=== PATIENT | female | born 1940 | race Caucasian/White ===

== ENCOUNTER 2016-10-06 20:25 | Inpatient (IN) | payer OTHER, MEDICARE ==
[~2016-10-06] VITALS: Ht 162.6 cm; Wt 53.5 kg
[~2016-10-06 20:25] MED LIST: AMLODIPINE BESYL5 MG PO; ASPIR-LOW81 MG PO; Aspirin Chewable PO; CARVEDILOL6.25 MG PO; CIPROFLOXACIN250 MG PO; COREG6.25 M1 PO; Cozaar PO; DAILY VITE1 EAC1 PO; LEVOFLOXACIN750 MG PO; LEVOTHYROXINE75 MCG PO; LIPITOR10 MG PO; LOSARTAN POTAS100 MG PO; Levothroid,Synthroid PO; NORVASC5 MG PO; PANTOPRAZOLE SO40 MG PO; PLAVIX75 MG PO; POTASSIUM CHLO20 ME1 PO; PREDNISONE2.5 MG PO; THERAGRAN1 TABLET PO; TYLENOL REGULA325 MG PO; ULTRAM50 MG PO; predniSONE PO
[2016-10-06 20:53] LABS: HEMATOCRIT 42.1 % (36.0-46.0); MCH 30.5 PG (29.0-34.0); MCHC 34.4 G/DL (30.0-36.0); MCV 88.4 FL (83-99); PLATELET COUNT 121 K/uL (156-360); RBC DIS.WIDTH-SD 41.6 % (39-53); RED BLOOD COUNT 4.76 M/uL (3.80-5.20)
[2016-10-06 21:02] LABS: CHLORIDE 108 mEq/L (99-109); POTASSIUM 3.7 mEq/L (3.7-5.4); SODIUM 137 mEq/L (136-147)
[2016-10-06 21:03] LABS: GLUCOSE 80 mg/dL (70-99)
[2016-10-06 21:05] LABS: ANION GAP 16 MEQ/L (2-14)
[2016-10-06 21:07] LABS: GFR ESTIMATE (CALCULATED) 26 mL/min/
[2016-10-06 21:08] LABS: UREA NITROGEN (BUN) 27 mg/dL (9-23)
[2016-10-06 21:49] LABS: ALKALINE PHOSPHATASE 61 IU/L (3-129)
[2016-10-06 21:52] LABS: DIRECT BILIRUBIN 0.3 mg/dL (0.0-0.3)
[2016-10-06 21:53] LABS: LIPASE 40 U/L (1.0-51.0)
[2016-10-06 22:21] LABS: TROP-I INTERPRETATION NEGATIVE; TROPONIN-I 0.03 ng/mL (0.0-0.30)
[2016-10-06] MEDS ORDERED: MUCINEX D ER T1 EACH PO (23:10)
[2016-10-07 00:49] VITALS: BP 104/51
[2016-10-07 07:24] LABS: HEMATOCRIT 36.3 % (36.0-46.0); MCH 30.2 PG (29.0-34.0); MCHC 33.3 G/DL (30.0-36.0); MCV 90.5 FL (83-99); MEAN PLAT.VOLUME 9.7 uM^3 (9.5-12.4); PLATELET COUNT 114 K/uL (156-360); RBC DIS.WIDTH-SD 42.8 % (39-53); RED BLOOD COUNT 4.01 M/uL (3.80-5.20); WHITE BLOOD COUNT 3.7 K/uL (4.1-10.2)
[2016-10-07 07:30] LABS: ANION GAP 8 MEQ/L (2-14); CHLORIDE 109 MEQ/L (99-109); GFR ESTIMATE (CALCULATED) 31 mL/min/; GLUCOSE 64 mg/dL (70-99); POTASSIUM 3.7 MEQ/L (3.7-5.4); SAMPLE HEMOLYSIS CHECK 0; SAMPLE ICTERIC CHECK 0; SAMPLE LIPEMIA CHECK 0; SODIUM 139 MEQ/L (136-147); UREA NITROGEN (BUN) 23 mg/dL (9-23)
[2016-10-07 08:39] VITALS: BP 116/56
[2016-10-07 12:10] LABS: INFLUENZA A VIRAL ANTIGEN POSITIVE; INFLUENZA B VIRAL ANTIGEN NEGATIVE
[2016-10-07 12:25] LABS: C DIFF TOXIN NEGATIVE (NEGATIVE); PROBE CHECK PASS; SPECIMEN PROCESSING CONTROL PASS
[2016-10-07 16:07] VITALS: BP 92/50
[2016-10-07 18:00] VITALS: BP 104/54
[2016-10-08 01:28] VITALS: BP 102/50
[2016-10-08 07:00] LABS: ANION GAP 8 MEQ/L (2-14); CHLORIDE 114 MEQ/L (99-109); GFR ESTIMATE (CALCULATED) > 59 mL/min/; GLUCOSE 86 mg/dL (70-99); POTASSIUM 4.4 MEQ/L (3.7-5.4); SAMPLE HEMOLYSIS CHECK 0; SAMPLE ICTERIC CHECK 0; SAMPLE LIPEMIA CHECK 0; SODIUM 140 MEQ/L (136-147); UREA NITROGEN (BUN) 11 mg/dL (9-23)
[2016-10-08 07:10] LABS: EOSINOPHIL (%) 0.5 % (0-5); HEMATOCRIT 35.1 % (36.0-46.0); IMMATURE GRANULOCYTE (%) 0.9 % (0.0-0.7); LYMPHOCYTE COUNT 0.7 K/uL (1.0-2.8); MCH 30.3 PG (29.0-34.0); MCHC 34.5 G/DL (30.0-36.0); MEAN PLAT.VOLUME 9.7 uM^3 (9.5-12.4); MONOCYTE (%) 9.7 % (3-12); MONOCYTE COUNT 0.2 K/uL (0-0.8); NEUTROPHIL (%) 54.7 % (45-76); NEUTROPHIL COUNT 1.2 K/uL (1.8-6.4); NRBC (%) 0.9 /100 WBC (0-0); PLATELET COUNT 108 K/uL (156-360); RBC DIS.WIDTH-CV 12.6 % (11.8-14.6); RBC DIS.WIDTH-SD 40.6 % (39-53); RED BLOOD COUNT 3.99 M/uL (3.80-5.20)
[2016-10-08 07:13] LABS: WHITE BLOOD COUNT 2.2 K/uL (4.1-10.2)
[2016-10-08 08:43] VITALS: BP 125/69
[2016-10-08 12:38] VITALS: BP 103/60
[2016-10-08 16:17] VITALS: BP 100/63
[2016-10-08 20:00] VITALS: BP 126/66
[2016-10-08 23:44] VITALS: BP 114/67
[2016-10-09 08:51] VITALS: BP 120/68
[2016-10-09 11:55] LABS: EOSINOPHIL (%) 3.7 % (0-5); EOSINOPHIL COUNT 0.2 K/uL (0-0.3); HEMATOCRIT 36.1 % (36.0-46.0); IMMATURE GRANULOCYTE (%) 0.2 % (0.0-0.7); LYMPHOCYTE COUNT 1.2 K/uL (1.0-2.8); MCH 30.3 PG (29.0-34.0); MCHC 34.1 G/DL (30.0-36.0); MCV 88.9 FL (83-99); MONOCYTE (%) 5.2 % (3-12); MONOCYTE COUNT 0.2 K/uL (0-0.8); NEUTROPHIL COUNT 2.4 K/uL (1.8-6.4); PLATELET COUNT 116 K/uL (156-360); RBC DIS.WIDTH-CV 13.1 % (11.8-14.6); RBC DIS.WIDTH-SD 42.6 % (39-53); RED BLOOD COUNT 4.06 M/uL (3.80-5.20); WHITE BLOOD COUNT 4.1 K/uL (4.1-10.2)
[2016-10-09 16:54] VITALS: BP 118/64
[2016-10-09 23:54] VITALS: BP 131/69
[2016-10-10 07:31] LABS: EOSINOPHIL (%) 0 % (0-5); HEMATOCRIT 32.3 % (36.0-46.0); IMMATURE GRANULOCYTE (%) 0.5 % (0.0-0.7); LYMPHOCYTE COUNT 1.1 K/uL (1.0-2.8); MCH 30.1 PG (29.0-34.0); MCHC 34.1 G/DL (30.0-36.0); MCV 88.3 FL (83-99); MEAN PLAT.VOLUME 10.8 uM^3 (9.5-12.4); MONOCYTE (%) 7.1 % (3-12); MONOCYTE COUNT 0.3 K/uL (0-0.8); NEUTROPHIL (%) 63.3 % (45-76); NEUTROPHIL COUNT 2.4 K/uL (1.8-6.4); PLATELET COUNT 90 K/uL (156-360); RBC DIS.WIDTH-CV 13.2 % (11.8-14.6); RBC DIS.WIDTH-SD 42.7 % (39-53); RED BLOOD COUNT 3.66 M/uL (3.80-5.20); WHITE BLOOD COUNT 3.8 K/uL (4.1-10.2)
[2016-10-10 07:51] LABS: ANION GAP 8 MEQ/L (2-14); CHLORIDE 115 MEQ/L (99-109); GFR ESTIMATE (CALCULATED) > 59 mL/min/; GLUCOSE 121 mg/dL (70-99); POTASSIUM 3.8 MEQ/L (3.7-5.4); SAMPLE HEMOLYSIS CHECK 0; SAMPLE ICTERIC CHECK 0; SAMPLE LIPEMIA CHECK 0; SODIUM 143 MEQ/L (136-147); UREA NITROGEN (BUN) 7 mg/dL (9-23)
[2016-10-10 08:27] VITALS: BP 144/75
[2016-10-10] MEDS ORDERED: PREDNISONE2.5 MG PO (12:03)
== END 2016-10-10 13:17 | disposition home or self-care (01) | DRG 699 ==
LOC: EME → EDBD 20:25 → EDOF 22:45 → 5EAST 22:45
PROVIDERS: Emergency Medicine; Family Medicine Sports Medicine; Internal Medicine Medical Oncology
DX: N28.9 Disorder of kidney and ureter, unspecified (principal); E86.0 Dehydration; J10.2 Influenza due to other identified influenza virus with gastrointestinal manifestations; E27.49 Other adrenocortical insufficiency; E20.9 Hypoparathyroidism, unspecified; R55 Syncope and collapse; I25.2 Old myocardial infarction; I10 Essential (primary) hypertension; E23.0 Hypopituitarism; I25.10 Atherosclerotic heart disease of native coronary artery without angina pectoris; D61.818 Other pancytopenia; D70.9 Neutropenia, unspecified; J10.1 Influenza due to other identified influenza virus with other respiratory manifestations
CPT/HCPCS: 71020; 80048; 80076; 81003; 83605; 83690; 84484; 85025; 85027; 87040; 87493; 87502; 93005; 99281; 99284; J0696; J2405; J7030; J7050; J7512